=== PATIENT | female | born 1965 | race Two or more races ===

== ENCOUNTER 2019-10-28 05:20 | Day surgery (SDC) | payer OTHER ==
[~2019-10-28 05:20] MED LIST: NEXIUM PO; SYNTHROID100 MCG PO
== END 2019-10-28 11:20 | disposition home or self-care (01) ==
LOC: CIR.AMB 05:20
PROVIDERS: ATTEND Orthopaedic Surgery Hand Surgery
DX: G56.01 Carpal tunnel syndrome, right upper limb (principal); Z20.828 Contact with and (suspected) exposure to other viral communicable diseases